=== PATIENT | female | born 1980 | race American Indian/Alaskan Native ===

== ENCOUNTER 2022-02-25 09:04 | Emergency (ER) | payer BC ==
[2022-02-25 09:21] VITALS: BP 136/108
--- NOTE | 2022-02-25 09:51 | XRay Report ---
LEFT FOOT 3 VIEW(S) INDICATION / CLINICAL INFORMATION: pain COMPARISON: None available. FINDINGS: BONES / JOINT(S): Chronic enthesopathic changes at the posterior calcaneus. Irregularity at the retic ulation of the medial cuneiform and navicular bone, possibly representing nonosseous coalition. SOFT TISSUES: No significant abnormality. ADDITIONAL FINDINGS: None. IMPRESSION: 1. 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 2. No displaced osseous fracture. Signer Name: Yuval Stout MD Signed: 02/25/2022 9:47 AM Workstation Name: [facility]
[2022-02-25] MEDS ORDERED: dexAMETHasone 4 MG/ML VIAL PO ONE (11:38)
[2022-02-25] MEDS ORDERED: KETOROLAC 30 MG/1 ML INJ IM ONE (11:38)
--- NOTE | 2022-02-25 11:39 | Emergency Department Report ---
ED Extremity Problem HPI - General Chief complaint: Extremity Injury, Lower Stated complaint: LT FOOT PAIN Source: patient Mode of arrival: Wheelchair Limitations: No Limitations - History of Present Illness Initial comments: 41-year-old female presents to the ED complaining of left foot pain. She states pain is a current 8 out of 10. Patient states that she was dancing last night when she accidentally twisted her left foot. Patient has mild swelling noted to the ankle area. Patient states is painful to bear weight but is able to ambulate. Patient has no obvious deformity noted. Patient denies any nausea fever tingling at present time. Patient is alert and oriented x3. No acute distress noted no ill appearance noted. MD Complaint: extremity pain Onset/Timin -: days(s) History of Same: No Severity scale (0 -10): 8 Consistency: intermittent Improves with: nothing Worsens with: weight bearing Associated Symptoms: denies other symptoms - Related Data Previous Rx's Medication Instructions Recorded Last Taken Type Naproxen [Naprosyn] 500 mg PO BID 15 Days #30 tablet 02/25/22 Unknown Rx Allergies Allergy/AdvReac Type Severity Reaction Status Date / Time codeine Allergy Itching Verified 02/25/22 09:21 ED Review of Systems ROS: Stated complaint: LT FOOT PAIN Other details as noted in HPI Constitutional: denies: chills, fever Eyes: denies: eye pain, eye discharge, vision change ENT: denies: ear pain, throat pain Respiratory: denies: cough, shortness of breath, wheezing Cardiovascular: denies: chest pain, palpitations Endocrine: no symptoms reported Gastrointestinal: denies: abdominal pain, nausea, diarrhea Genitourinary: denies: urgency, dysuria, discharge Musculoskeletal: denies: back pain, joint swelling, arthralgia Skin: denies: rash, lesions Neurological: denies: headache, weakness, paresthesias Psychiatric: denies: anxiety, depression Hematological/Lymphatic: denies: easy bleeding, easy bruising ED Past Medical Hx - Past Medical History Hx Hypertension: Yes - Surgical History Hx Cholecystectomy: Yes Additional Surgical History: hernia repair, cyst removals - Medications Home Medications: Home Medications Medication Instructions Recorded Confirmed Last Taken Type Naproxen [Naprosyn] 500 mg PO BID 15 Days #30 tablet 02/25/22 Unknown Rx ED Physical Exam - General Limitations: No Limitations General appearance: alert, in no apparent distress - Head Head exam: Present: atraumatic, normocephalic - Eye Eye exam: Present: normal appearance - ENT ENT exam: Present: mucous membranes moist - Neck Neck exam: Present: normal inspection - Respiratory Respiratory exam: Present: normal lung sounds bilaterally. Absent: respiratory distress - Cardiovascular Cardiovascular Exam: Present: regular rate, normal rhythm. Absent: systolic murmur, diastolic murmur, rubs, gallop - GI/Abdominal GI/Abdominal exam: Present: soft, normal bowel sounds - Extremities Exam Extremities exam: Present: normal inspection - Back Exam Back exam: Present: normal inspection - Neurological Exam Neurological exam: Present: alert, oriented X3 - Psychiatric Psychiatric exam: Present: normal affect, normal mood - Skin Skin exam: Present: warm, dry, intact, normal color. Absent: rash ED Course Vital Signs 02/25/22 09:16 Temperature 98.1 F Pulse Rate 73 Respiratory 18 Rate Blood Pressure 136/108 [Left] O2 Sat by Pulse 99 Oximetry ED Medical Decision Making - Radiology Data [facility] [address] [place] [address] XRay Report Signed Patient: BHARATH CHAPA MR#: [id number] : 1980 Acct:[id number] Age/Sex: 41 / F ADM Date: 02/25/22 Loc: ED Attending Dr: Ordering Physician: ELAN HARDING MD Date of Service: 02/25/22 Procedure(s): XR foot 3+V LT Accession Number(s): [id number] cc: ELAN HARDING MD Fluoro Time In Minutes: LEFT FOOT 3 VIEW(S) INDICATION / CLINICAL INFORMATION: pain COMPARISON: None available. FINDINGS: BONES / JOINT(S): Chronic enthesopathic changes at the posterior calcaneus. Irregularity at the reticulation of the medial cuneiform and navicular bone, possibly representing nonosseous coalition. SOFT TISSUES: No significant abnormality. ADDITIONAL FINDINGS: None. IMPRESSION: 1. 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 2. No displaced osseous fracture. Signer Name: Elodia Stout MD Signed: 02/25/2022 9:47 AM Workstation Name: [email or web address] Transcribed By: Dictated By: ELODIA STOUT MD Electronically Authenticated By: ELODIA STOUT MD Signed Date/Time: 02/25/22946 DD/ 4 TD/TT: Print Cancel - Medical Decision Making 41-year-old female presents to the ED complaining of left foot pain. She states pain is a current 8 out of 10. Patient states that she was dancing last night when she accidentally twisted her left foot. Patient has mild swelling noted to the ankle area. Patient states is painful to bear weight but is able to ambulate. Patient has no obvious deformity noted. Patient denies any nausea fever tingling at present time. Patient is alert and oriented x3. No acute distress noted no ill appearance noted. Patient is given Miguel wrap and crutches. X-ray shows osteoarthritis. Rechecked the patient is resting quietly , comfortable and feeling better. I discussed the results of diagnostic study, my clinical impression and the plan for further treatment with the patient. Patient agrees with plan and discharge at this present time. All question addressed. I have given the patient instruction regarding a diagnosis ,expectation ,follow- up and return precaution. I explained to the patient that emergent condition may arise and to return to the ED for new worsen and any new persisting condition. I have explained the importance of following up with the primary care physician or referral physician listed below has instructed. The patient verbalized understanding of discharge instruction. Critical care attestation.: If time is entered above; I have spent that time in minutes in the direct care of this critically ill patient, excluding procedure time. ED Disposition Clinical Impression: Osteoarthritis of left foot Qualifiers: Osteoarthritis type: primary Qualified Code(s): M19.072 - Primary osteoarthritis, left ankle and foot Disposition: 01 HOME / SELF CARE / HOMELESS Is pt being admited?: No Does the pt Need Aspirin: No Condition: Stable Instructions: Osteoarthritis, Preventing Osteoarthritis, Adult, Arthritis, [id number] Additional Instructions: Take medication as prescribed Return to the ED for any worsening symptom Prescriptions: Naproxen [Naprosyn] 500 mg PO BID 15 Days #30 tablet Referrals: CAPRICE MANZO MD [Primary Care Provider] - 3-5 Days [facility] [Provider Group] - 3-5 Days Forms: Work/School Release Form(ED) Time of Disposition: 12:42
== END 2022-02-25 13:04 | disposition home or self-care (01) ==
LOC: ED 09:04
DX: M19.072 Primary osteoarthritis, left ankle and foot (principal)
CPT/HCPCS: 73630; 96372; 99284; J1100; J1885; 99283